=== PATIENT | female | born 1995 | race Asian ===

== ENCOUNTER 2021-03-21 14:53 | Emergency (ER) | payer MEDICAID ==
[~2021-03-21] VITALS: Ht 157.5 cm; Wt 60.8 kg
[2021-03-21 15:19] LABS: *BILIRUBIN,URIN NEGATIVE (NEGATIVE); *BLOOD, URINE 3+ (NEGATIVE); *CLARITY,URINE CLEAR (CLEAR); *COLOR,URINE Brown (YELLOW); *KETONES,URINE NEGATIVE (NEGATIVE); *UROBILINOGEN,URINE 0.2 E.U./dl (NORMAL); LEUKOCYTE ESTERASE ,URINE NEGATIVE (NEGATIVE); NITRITE, URINE NEGATIVE (NEGATIVE); UGLUCOSE NEGATIVE (NEGATIVE)
[2021-03-21 15:26] LABS: *URINE HCG, QUAL NEG (NEGATIVE)
[2021-03-21 15:53] LABS: HEMATOCRIT 36.8 % (31.2-41.9); MEAN CORPUSCULAR HEMOGLOBIN 21.7 uug (24.7-32.8); MEAN CORPUSCULAR VOLUME 66.6 fL (75.5-95.3); PLATELET COUNT (AUTO) 299 K/uL (179-408)
--- NOTE | 2021-03-21 15:57 | NUR ---
Dr Kamara at the bedside for MSE.
[2021-03-21] MEDS ORDERED: KETOROLAC TROMETHAMINE 30 MG INJ ONE (15:59)
[2021-03-21] MEDS ORDERED: KETOROLAC TROMETHAMINE 30 MG INJ IVP ONE (16:00)
[2021-03-21 16:01] LABS: CARBON DIOXIDE 25 mmol/L (21-32); CHLORIDE 103 mmol/L (98-107); CREATININE 0.6 mg/dL (0.6-1.3); GLUCOSE 79 mg/dL (74-106); POTASSIUM 4.2 mmol/L (3.5-5.1); UREA NITROGEN, BLOOD 10 mg/dL (7-18)
[2021-03-21 16:07] LABS: ALANINE AMINOTRANSFERASE 42 U/L (14-59); ALKALINE PHOSPHATASE 44 U/L (50-136); ASPARTATE AMINOTRANSFERASE 24 U/L (15-37); BILIRUBIN,TOTAL 0.4 mg/dL (0.2-1.0); TOTAL PROTEIN, SERUM 7.6 g/dL (6.4-8.2)
[2021-03-21 16:08] LABS: BILIRUBIN,DIRECT < 0.1 mg/dL (0.0-0.2)
[2021-03-21 17:08] LABS: LIPASE 112 U/L (73-393)
--- NOTE | 2021-03-21 17:42 | NUR ---
Female steam fitter supervisor maintenance accompanied female patient for (DR Kamara).
[2021-03-21] MEDS ORDERED: IBUP-1955 PO (18:00)
[2021-03-21] MEDS ORDERED: DOXY-326 PO (18:00)
[2021-03-21] MEDS ORDERED: AZITHROMYCIN 250 MG TABLET PO ONE (18:00)
[2021-03-21] MEDS ORDERED: CEFTRIAXONE 500 MG VIAL IM ONE (18:00)
[2021-03-21] MEDS ORDERED: CEFTRIAXONE 500 MG VIAL ONE (18:08)
[2021-03-21] MEDS ORDERED: LIDOCAINE HCL 1% 20 ML VIAL ONE (18:08)
--- NOTE | 2021-03-21 18:15 | NUR ---
IV removed. Catheter intact and site benign. Pressure and 4x4 gauze applied to site. No bleeding noted.
[2021-03-21 18:16] VITALS: BP 121/60
--- NOTE | 2021-03-21 18:17 | NUR ---
Patient discharged to home in stable condition. Written and verbal after care instructions given. Patient verbalizes understanding of instructions. Stressed follow up or return to ER for worsening s/s.
[2021-03-21 22:26] LABS: BACTERIA,URINE FEW /HPF (NONE SEEN); RBC,URINE 80-100 /HPF (0-3); SQUAMOUS EPITHELIAL CELL,UR FEW /HPF (NONE SEEN); WBC,URINE 0-3 /HPF (0-3)
[2021-04-04 13:36] LABS: *GC NAA NEGATIVE
[2021-04-04 13:37] LABS: *TRIC.VAG. NAA NEGATIVE
== END 2021-03-21 18:20 | disposition home or self-care (01) ==
LOC: ER 14:53
DX: R10.33 Periumbilical pain (principal); K58.9 Irritable bowel syndrome, unspecified
CPT/HCPCS: 36415; 76856; 80048; 80076; 81001; 83690; 84703; 85025; 87491; 96372; 96374; 99284; J0696; J1885; J3490; A4663; Q0144